=== PATIENT | male | born 1990 | race Caucasian/White ===

== ENCOUNTER 2019-01-09 19:59 | Emergency (ER) | payer SELFPAY ==
[~2019-01-09] VITALS: Ht 185.4 cm; Wt 122.0 kg
[2019-01-09] MEDS ORDERED: TETanus/Pertussis (Acell)/Diphther VAC/PF (Tdap-Adult) 0.5ml syringe IM ONE (20:20)
[2019-01-09] MEDS ORDERED: LIDOcaine 1% w/epiNEPHrine 1:200,000 30ml vial IM ONE (20:20)
[2019-01-09] MEDS ORDERED: CEPH500C5 PO (21:13)
[2019-01-09] MEDS ORDERED: bacitracin 15gm ointment TP ONE (21:15)
[2019-01-09 21:29] VITALS: BP 135/82
== END 2019-01-09 21:32 | disposition home or self-care (01) ==
LOC: ER 20:00
DX: S01.21XA Laceration without foreign body of nose, initial encounter (principal); F12.90 Cannabis use, unspecified, uncomplicated; Z79.2 Long term (current) use of antibiotics; W22.8XXA Striking against or struck by other objects, initial encounter; Y93.89 Activity, other specified; Y92.89 Other specified places as the place of occurrence of the external cause; Y99.8 Other external cause status
CPT/HCPCS: 12011; 82948; 90471; 99284